=== PATIENT | male | born 1970 ===

== ENCOUNTER 2016-11-30 19:51 | Inpatient (IN) | payer OTHER ==
[2016-11-30 19:53] VITALS: BMI 31.1
--- NOTE | 2016-11-30 20:12 | ED PDOC ---
Arrival/HPI - General Chief Complaint: Chest Pain Time Seen by Provider: 11/30/16 20:00 Historian: Patient, EMS - History of Present Illness Narrative History of Present Illness (Text): 11/30/16 20:05 A 46 year old male, whose past medical history includes Diabetes (on Metformin) and HCL, is BIBA for the evaluation of intermittent chest pain over the last 4 days. This current episode of chest pain started 30 min before EMS arrived to the patient's home. EMS reports that patient received Aspirin in the field and Nitro was withheld since the patient's pressure was 100 systolic. EMS states patient had rhythm strips that were highly suggestive of an acute CT inferiorly. Upon arrival, patient states that pain was no longer present in the Emergency room. Patient describes the pain as a sensation of tightness and rates it as a 10/10 in severity. Patient reports that he saw his PMD earlier today. Patient denies shortness of breath, headaches, dizziness, nausea, vomiting, diarrhea, or any other complaints. Time/Duration: 1/2 hour Symptom Onset: Sudden Symptom Course: Intermittent Quality: Tightness Severity Level: 10, Severe Activities at Onset: Light Context: Home Past Medical History - Provider Review Nursing Documentation Reviewed: Yes - Pulmonary Hx Respiratory Disorders: No - Neurological Hx Neurological Disorder: No - HEENT Hx HEENT Disorder: No - Renal Hx Renal Disorder: No - Endocrine/Metabolic Hx Diabetes Mellitus Type 2: Yes - Hematological/Oncological Hx Blood Disorders: No - Integumentary Hx Dermatological Disorder: No - Musculoskeletal/Rheumatological Hx Musculoskeletal Disorders: No - Gastrointestinal Hx Gastrointestinal Disorders: No - Genitourinary/Gynecological Hx Genitourinary Disorders: No - Psychiatric Hx Psychophysiologic Disorder: No Hx Substance Use: No - Anesthesia Hx Anesthesia: No Family/Social History - Physician Review Nursing Documentation Reviewed: Yes Family/Social History: No Known Family HX Smoking Status: Former Smoker Hx Alcohol Use: No Hx Substance Use: No Allergies/Home Meds Allergies/Adverse Reactions: Allergies No Known Allergies Allergy (Verified 11/30/16 19:54) Home Medications: Home Meds Medication Instructions Recorded Confirmed Simvastatin [Zocor] 40 mg PO DAILY 11/30/16 11/30/16 metFORMIN [glucOPHAGE] 500 mg PO BID 11/30/16 11/30/16 Review of Systems - Physician Review All systems were reviewed & negative as marked: Yes - Review of Systems Constitutional: absent: Fevers Respiratory: absent: SOB Cardiovascular: Chest Pain Gastrointestinal: absent: Diarrhea, Nausea, Vomiting Neurological: absent: Headache, Dizziness Physical Exam Vital Signs Reviewed: Yes Vital Signs Temp Pulse Resp BP Pulse Ox 11/30/16 22:28 74 16 132/80 98 11/30/16 21:00 69 16 120/74 100 11/30/16 20:00 97.7 F 60 18 119/89 99 Temperature: Afebrile Blood Pressure: Normal Pulse: Regular Respiratory Rate: Normal Appearance: Positive for: Well-Appearing, Non-Toxic, Comfortable Pain Distress: None Mental Status: Positive for: Alert and Oriented X 3 - Systems Exam Head: Present: Atraumatic, Normocephalic Pupils: Present: PERRL Extroacular Muscles: Present: EOMI Conjunctiva: Present: Normal Mouth: Present: Moist Mucous Membranes Neck: Present: Normal Range of Motion, Other (Supple). No: MIDLINE TENDERNESS, Paraspinal Tenderness Respiratory/Chest: Present: Clear to Auscultation, Good Air Exchange. No: Respiratory Distress, Accessory Muscle Use Cardiovascular: Present: Regular Rate and Rhythm, Normal S1, S2. No: Murmurs Abdomen: Present: Normal Bowel Sounds. No: Tenderness, Distention, Peritoneal Signs, Rebound, Guarding Back: Present: Normal Inspection. No: CVA Tenderness, Midline Tenderness, Paraspinal Tenderness Upper Extremity: Present: Normal Inspection, Normal ROM, NORMAL PULSES, Neurovascularly Intact. No: Cyanosis, Edema, Tenderness, Swelling, Erythema Lower Extremity: Present: Normal Inspection, NORMAL PULSES, Normal ROM, Neurovascularly Intact. No: Edema, CALF TENDERNESS, Tenderness, Swelling, Erythema Neurological: Present: GCS=15, CN II-XII Intact, Speech Normal, Motor Func Grossly Intact, Normal Sensory Function Skin: Present: Warm, Dry, Normal Color. No: Rashes Psychiatric: Present: Alert, Oriented x 3, Normal Insight, Normal Concentration Medical Decision Making ED Course and Treatment: 11/30/16 20:15 Impression: A 46 year old male with chest pain. No acute findings on examination. Differential Diagnosis included but are not limited to: CT vs. Nonspecific Chest pain Plan: -- EKG -- Chest X-ray -- Labs -- Reassess and disposition Progress Notes: 11/30/16 20:20 EKG: Ordered, reviewed, and independently interpreted the EKG. Rate : 72 BPM Rhythm : Sinus Arrhythmia Interpretation : Septal infarct and nonspecific ST/T changes. Comparison : No previous EKG for comparison. 11/30/16 20:55 EKG2: Ordered, reviewed, and independently interpreted the EKG. Rate : 55 BPM Rhythm : Sinus Bradycardia Interpretation : Nonspecific ST/T changes. Comparison : No previous EKG for comparison. 11/30/16 21:[address] Mcleod, who is aware and agrees with plan. Accepts pt into her service. 11/30/16 21:[address] Mcgrath, who is aware and agrees with plan. Recommends Heparin at this time and monitoring on Telemetry since pt has had serial EKGs with no acute injury. Pt will be admitted to Telemetry for chest pain under Dr. Mcleod's service. 11/30/16 22:31 Chest X-ray shows no active disease. - Critical Care Critical Care Minutes: 30 minutes - Lab Interpretations Lab Results: 11/30/16 20:00 11/30/16 20:00 Lab Results 11/30/16 20:00: WBC 14.5 H, RBC 5.17, Hgb 14.8, Hct 41.8 L, MCV 80.9, MCH 28.6, MCHC 35.4, RDW 12.5, Plt Count 272, MPV 11.6 H 11/30/16 20:00: Sodium 140, Potassium 4.5, Chloride 101, Carbon Dioxide 23, Anion Gap 21 H, BUN 16, Creatinine 1.0, Est GFR ( Amer) > 60, Est GFR ( Non-Af Amer) > 60, Random Glucose 182 H, Calcium 9.2, Total Bilirubin 0.9, AST 27, ALT 48, Alkaline Phosphatase 85, Lactate Dehydrogenase 349, Total Creatine Kinase 57, Troponin I < 0.01, Total Protein 6.2, Albumin 3.9, Globulin 2.4, Albumin/Globulin Ratio 1.6 11/30/16 20:00: PT 10.4, INR 0.96, APTT 23.3 L 11/30/16 19:56: POC Glucose (mg/dL) 203 H I have reviewed the lab results: Yes - RAD Interpretation Radiology Orders: 11/30/16 20:01 CHEST PORTABLE [RAD] Stat Cafe Site Attendant: ED Physician - EKG Interpretation Interpreted by ED Physician: Yes Type: 12 lead EKG - Medication Orders Current Medication Orders: Heparin Sodium/Sodium Chloride (Heparin 99228 Units/250ml 1/2 Normal Saline) 25 ,000 units in 250 mls @ 10 mls/hr IV .Q24H PRN; Protocol; 1,000 UNITS/HR PRN Reason: ADJUST RATE PER MD ORDER Discontinued Medications Heparin Sodium (Porcine) (Heparin) 5,000 units IV ONCE STA PRN Reason: Protocol Stop: 11/30/16 21:58 Nitroglycerin (Nitro-Bid 2% Oint) 1 ea TOP ONCE STA Stop: 11/30/16 20:37 Last Admin: 11/30/16 21:11 Dose: 1 ea - Scribe Statement The provider has reviewed the documentation as recorded by the Kathy Cook Provider Scribe Attestation: All medical record entries made by the Scribe were at my direction and personally dictated by me. I have reviewed the chart and agree that the record accurately reflects my personal performance of the history, physical exam, medical decision making, and the department course for this patient. I have also personally directed, reviewed, and agree with the discharge instructions and disposition. Disposition/Present on Arrival - Present on Arrival Any Indicators Present on Arrival: No History of DVT/PE: No History of Uncontrolled Diabetes: No Urinary Catheter: No History of Decub. Ulcer: No History Surgical Site Infection Following: None - Disposition Have Diagnosis and Disposition been Completed?: Yes Diagnosis: Chest pain Disposition: HOSPITALIZED Disposition Time: 22:04 Patient Plan: Admission Patient Problems: Current Active Problems Problem Status Onset Chest pain Acute Condition: STABLE Discharge Instructions (ExitCare): Chest Pain (ED) Referrals: Tracy Foley MD [Primary Care Provider] - Follow up with primary
[2016-11-30] MEDS ORDERED: Nitroglycerin 2% Ointment Foilpak UD TOP STA (20:36)
[2016-11-30 20:39] LABS: HEMATOCRIT 41.8 % (42.0-52.0); MEAN CELL VOLUME 80.9 fL (80.0-105.0); MEAN CORPUSCULAR HEMOGLOBIN 28.6 pg (25.0-35.0); MEAN CORPUSCULAR HGB CONC 35.4 g/dl (31.0-37.0); MEAN PLATELET VOLUME 11.6 fl (7.0-11.0); RED CELL DISTRIBUTION WIDTH 12.5 % (11.5-14.5); WHITE BLOOD COUNT 14.5 10^3/ul (4.5-11.0)
[2016-11-30 20:46] LABS: INR 0.96 (0.93-1.08); PARTIAL THROMBOPLASTIN TIME 23.3 Seconds (23.7-30.8)
[2016-11-30 20:48] LABS: ALB/GLOB RATIO 1.6 (1.1-1.8); ALKALINE PHOSPHATASE 85 U/L (38-133); ALT/SGPT 48 U/L (7-56); AST/SGOT 27 U/L (15-59); BILIRUBIN,TOTAL 0.9 mg/dL (0.2-1.3); CALCIUM 9.2 mg/dL (8.4-10.5); CARBON DIOXIDE 23 mmol/L (21-33); CHLORIDE 101 mmol/L (98-107); GFR AFRICAN-AMERICAN > 60; GLUCOSE,RANDOM 182 mg/dL (70-110); POTASSIUM 4.5 mmol/L (3.6-5.0); SODIUM 140 mmol/L (132-148); TOTAL PROTEIN 6.2 g/dL (5.8-8.3)
[2016-11-30 21:04] LABS: BLOOD UREA NITROGEN 16 mg/dL (7-21)
[2016-11-30 21:09] LABS: TROPONIN I < 0.01 ng/mL
[2016-11-30] MEDS ORDERED: Heparin25000 units/250ml 1/2NS 25,000 UNITS/250 ML BAG IV PRN (21:58)
[2016-12-01] MEDS ORDERED: Heparin25000 units/250ml 1/2NS 25,000 UNITS/250 ML BAG IV SCH (05:30)
[2016-12-01 05:41] LABS: TROPONIN I 4.98 ng/mL
--- NOTE | 2016-12-01 06:11 | CP.PCM.PN ---
Subjective - Date & Time of Evaluation Date of Evaluation: 12/01/16 Time of Evaluation: 05:57 - Subjective Subjective: called by nurse pt has elevated troponine 4.98,pt denies complaints is lying comfortably . pt is on heparin .pt had receieved asprin but no plavix ,uds is positive for cocain. Objective - Vital Signs/Intake and Output Vital Signs (last 24 hours): Temp Pulse Resp BP Pulse Ox 98.3 F 67 18 118/66 98 12/01/16 05:53 12/01/16 05:53 12/01/16 05:53 12/01/16 05:53 12/01/16 05:53 - Medications Medications: Current Medications Heparin Sodium/Sodium Chloride (Heparin 51248 Units/250ml 1/2 Normal Saline) 25 ,000 units in 250 mls @ 14.4 mls/hr IV .[id number] PRN; Protocol PRN Reason: ADJUST PER PROTOCOL - Labs Labs: PT 10.4 Seconds (9.9-11.8) 11/30/16 20:00 INR 0.96 (0.93-1.08) 11/30/16 20:00 APTT 34.1 Seconds (23.7-30.8) H 12/01/16 04:15 - Constitutional Appears: No Acute Distress - Head Exam Head Exam: NORMOCEPHALIC - Eye Exam Eye Exam: Normal appearance Pupil Exam: PERRL - ENT Exam ENT Exam: Mucous Membranes Moist - Neck Exam Neck Exam: Full ROM - Respiratory Exam Respiratory Exam: Clear to Ausculation Bilateral - Cardiovascular Exam Cardiovascular Exam: RRR, +S1, +S2 - GI/Abdominal Exam GI & Abdominal Exam: Soft, Normal Bowel Sounds - Rectal Exam Rectal Exam: Deferred - Extremities Exam Extremities Exam: Full ROM - Neurological Exam Neurological Exam: Alert, Awake, CN II-XII Intact, Oriented x3 - Psychiatric Exam Psychiatric exam: Normal Affect - Skin Skin Exam: Dry, Normal Color Assessment and Plan - Assessment and Plan (Free Text) Assessment: NSTEMI./COCAIN. Plan: PT pt is on heparine will add plavix 300mg x1.called dr maldonado.
[2016-12-01] MEDS: Nitroglycerin 2% Ointment Foilpak UD TOP SCH ×3 (10:45→21:50)
[2016-12-01 11:06] LABS: ADD MANUAL DIFF? NO
[2016-12-01 11:09] LABS: BASO # 0.01 K/mm3 (0.0-2.0); BASO % 0.1 % (0.0-3.0); EOS # 0.1 (0.0-0.7); EOS % 0.9 % (1.5-5.0); GRAN # 5.85 (1.4-6.5); GRAN % 63.4 % (50.0-68.0); HEMATOCRIT 41.2 % (42.0-52.0); LYMPH # 2.7 (1.2-3.4); LYMPH % 28.8 % (22.0-35.0); MEAN CELL VOLUME 83.1 fL (80.0-105.0); MEAN PLATELET VOLUME 12.5 fl (7.0-11.0); MONO # 0.6 (0.1-0.6); MONO % 6.8 % (1.0-6.0); PLATELET COUNT 204 10^3/uL (120.0-450.0); RED CELL DISTRIBUTION WIDTH 12.7 % (11.5-14.5); WHITE BLOOD COUNT 9.2 10^3/ul (4.5-11.0)
[2016-12-01] MEDS ORDERED: Insulin Reg-LOW-Coverage SC SCH (11:30)
[2016-12-01] MEDS: Insulin Reg-LOW-Coverage SC SCH ×3 (11:30→21:24)
--- NOTE | 2016-12-01 11:41 | RAD ---
HISTORY: chest pain COMPARISON: The No prior. FINDINGS: LUNGS: Poor inspiration with low lung volumes, mild crowded bronchovascular markings and mild bibasilar atelectasis PLEURA: No significant pleural effusion identified, no pneumothorax apparent. CARDIOVASCULAR: Normal. OSSEOUS STRUCTURES: No significant abnormalities. VISUALIZED UPPER ABDOMEN: Normal. OTHER FINDINGS: None. IMPRESSION: Poor inspiration with low lung volumes, mild crowded bronchovascular markings and mild bibasilar atelectasis
[2016-12-01 12:30] LABS: ALB/GLOB RATIO 1.5 (1.1-1.8); ALKALINE PHOSPHATASE 86 U/L (38-133); ALT/SGPT 43 U/L (7-56); AST/SGOT 47 U/L (15-59); BILIRUBIN,TOTAL 1.1 mg/dL (0.2-1.3); BLOOD UREA NITROGEN 12 mg/dL (7-21); CALCIUM 9.1 mg/dL (8.4-10.5); CARBON DIOXIDE 23 mmol/L (21-33); CHLORIDE 104 mmol/L (98-107); CHOLESTEROL 152 mg/dL (130-200); GFR AFRICAN-AMERICAN > 60; GLUCOSE,RANDOM 142 mg/dL (70-110); SODIUM 137 mmol/L (132-148); TOTAL PROTEIN 6.4 g/dL (5.8-8.3)
[2016-12-01 13:22] LABS: TROPONIN I 4.22 ng/mL
--- NOTE | 2016-12-01 13:29 | CON ---
DATE: 12/01/2016 REASON FOR CONSULTATION: Cardiac evaluation, chest pain, possible cocaine-induced vasospasm, ST elev ation. 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 The school lunch monitor where the patient was picked up with EMT/ambulance with ST eleva tion in inferior lead II, III, aVF. When the patient got to the Emergency Room after receiving aspir in and nitroglycerin in the field, rhythm strips from the field shows ST elevation, but while the pat ient had EKG here, complete resolution of ST segment noted with resolution of the chest pain. Repeat 3 EKG were done by Dr. Escoto after a while, but all these show no ST elevation and the patient completely resolved the chest pain. Troponin was negative. I was called for discussion and manageme nt. I told them that probably will start heparin and send the tox screen to rule out any cocaine-ind uced vasospasm as well as start heparin and nitrate and hold off the beta dottie for now. Since the n, the patient is chest pain free. This morning, the patient denies any chest pain, but the repeat t roponin at 2:00 a.m. came out 4.2, first troponin being negative. Repeat EKG this morning done again , there was no ST segment elevation noted or ST depression noted. Completely normal EKG and the mark ent is completely chest pain free as well. PAST MEDICAL HISTORY: Significant for hyperlipidemia as per patient and questionable history of diab etes, usually takes 2 aspirin every day and cholesterol pills, name unknown. 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 Denies any smoking. Denies any history of alcohol abuse. Den ies substance abuse. With further interrogation as the tox screen is positive, the patient said that he took only 1 time cocaine last Saturday. FAMILY HISTORY: Significant for coronary artery disease. Father at the age of 50. REVIEW OF SYSTEMS: As per HPI. 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 Denies any chest pain, shortness o f breath, any palpitation. PHYSICAL EXAMINATION: VITAL SIGNS: Temperature afebrile, heart rate 67, blood pressure 118/66. HEENT: PERRLA. Extraocular muscles intact. NECK: Supple. No carotid bruits. No thyromegaly. CHEST: Clear to auscultation. HEART: S1, S2 regular. ABDOMEN: Soft. EXTREMITIES: Clubbing and cyanosis negative. Height of the patient is 5 feet 7 inches. Weight of t he patient 183. Body mass index 28.7 kg/m2. EKG shows normal sinus. No acute ST-T changes noted, but when compared from the EKG that was in tele metry strip when the patient was picked up in the EMT shows significant 3-[address] elevation in inferi or leads II, III, aVF with reciprocal ST depression in anterior lead suggestive of acute AR. BLOOD WORKUP: WBC 14.5, hemoglobin 14.8, hematocrit 41.8, platelet count 272. Chemistry shows sodiu m 140, potassium 4.5, chloride 101, carbon dioxide 23, anion gap of 21, BUN 16, creatinine 1.0. Firs t troponin being 0.01, second troponin 4.98. IMPRESSION: Possible cocaine-induced vasospasm lead to the acute myocardial infarction with complete resolution of ST segment, complete resolution of the chest pain. Not a candidate to go for emergent cardiac catheterization. History of substance abuse, history of hyperlipidemia, history of diabetes . RECOMMENDATION: We will get lipid profile, TSH, hemoglobin A1c, follow up serial CPK, troponin. Con tinue heparin, continue nitrate. Avoid beta dottie for unopposed effect of alpha dottie from the c ocaine. Will get aspirin, Plavix and possible cardiac catheterization on Saturday. We will get echo t o assess LV function. We will follow with you. Thank you, Dr. Mcleod, for providing the opportunity in taking care of the patient. Further recommen dation during the hospital course. Antonio Mcgrath MD cc: [id number] TT: 12/01/2016 13:28:24 Confirmation # [id number] Dictation # [id number] tn
--- NOTE | 2016-12-01 13:29 | CARD ---
APPROVED REPORT EKG Measurement Heart [id number] [place] [id number] <Conclusion> Normal sinus rhythm Normal ECG
--- NOTE | 2016-12-01 13:32 | CARD ---
APPROVED REPORT EKG Measurement Heart [id number] [place] [id number] [id number] <Conclusion> Normal sinus rhythm Normal ECG
--- NOTE | 2016-12-01 13:35 | CARD ---
APPROVED REPORT EKG Measurement Heart [id number] [place] 146P64 [id number] <Conclusion> Sinus rhythm with marked sinus arrhythmia Possible Left atrial enlargement Non Sp. IVCD Abnormal ECG
[2016-12-01] MEDS: Heparin25000 units/250ml 1/2NS 25,000 UNITS/250 ML BAG IV PRN ×2 (17:50→19:26)
--- NOTE | 2016-12-01 19:29 | HP ---
CHIEF COMPLAINT: Chest pain, shortness of breath. HISTORY OF PRESENT ILLNESS: The patient is a 46-year-old male with a past medical history of diabetes on metformin, hypertension, came for evaluation of intermittent chest pain over the last 4 days. The current episode of chest pain started 30 minutes before EMS arrived to the patient's home. EMS reported that the patient received aspirin in the field and nitro withheld since the patient's blood pressure was 100 systolic. EMS stated that the patient had rhythm strips that were highly suggestive of an acute myocardial infarction inferiorly. Upon arrival, the patient stated that the pain was no longer present in the Emergency Room. The patient describes this pain as a sensation of tightness and is like 10/10 in severity. The patient reports that he saw his primary care physician earlier that day. The patient denies shortness of breath, headache or dizziness, nausea, vomiting, diarrhea or any other complaints. No fever, no chills. PAST MEDICAL HISTORY: Diabetes mellitus type 2, hypertension. FAMILY HISTORY: Father and mother noncontributory. HABITS: Former smoker. No drugs, no ethanol. ALLERGIES: The patient is not allergic to any medications. HOME MEDICATIONS: Zocor, metformin. REVIEW OF SYSTEMS: The patient was seen and examined on the bedside. was sitting on the bedside also. At the moment, no chest pain, no nausea, vomiting , or diarrhea. No fever, no chills. No headache, no dizziness. Feeling relaxed. No dyspnea. No diarrhea, no nausea or vomiting. PHYSICAL EXAMINATION: VITAL SIGNS: Temperature 97.7, pulse 60, respiratory rate 16, blood pressure 190/89, pulse oximetry 99. HEAD: Normocephalic, atraumatic. EYES: PERRLA. Extraocular muscles are intact. Conjunctivae are clear. Nose patent. NECK: Supple. No carotid bruit. No JVD or thyromegaly. CHEST: Bilaterally symmetrical. HEART: S1, S2 positive. LUNGS: Clear to auscultation. ABDOMEN: Soft. Bowel sounds present. No organomegaly. EXTREMITIES: No edema, no cyanosis. NEUROLOGIC: The patient is awake, alert, moving all 4 extremities. No focal deficit. LABORATORY DATA: White blood cells 14.5, hemoglobin 14.8, hematocrit 41.8, platelets 272. Sodium 140, potassium 4.5, BUN 15, creatinine 1.0, and glucose 182. ASSESSMENT AND PLAN: The patient is a 46-year-old male with leukocytosis, hyperglycemia, came with chest pain, history of diabetes mellitus, hypertension , hypercholesterolemia. We admitted the patient. The patient's primary care , does not come in this hospital. The patient is admitted under my service. Seen by Dr. Mcgrath, tight rope walker. Seen by Dr. graham physician. According to Dr. Mcgrath, the patient has possibly cocaine induced with leading to acute myocardial infarction with complete resolution of ST segment, complete resolution of the chest pain. Not a candidate to go to emergent cardiac catheterization, history of substance abuse, history of hypercholesterolemia. We will do TSH, hemoglobin A1c, follow up with serial CPK, troponin and continue heparin. As per tight rope walker, avoid beta dottie for unopposed effect of alpha blockers from the cocaine. Length of time discussion done with the patient and patient's . They speaks [place]ian. The patient's nurse, Margie, speaks [place]ian. Margie of the nursing staff helped me for translation. Started on Plavix by Dr. Mcgrath for possible cardiac catheterization on Saturday. Asia Mcleod MD cc: [id number] TT: 12/01/2016 19:28:41 noman CROOK
[2016-12-02] MEDS: Nitroglycerin 2% Ointment Foilpak UD TOP SCH ×4 (05:15→21:44)
[2016-12-02] MEDS: Insulin Reg-LOW-Coverage SC SCH ×4 (08:08→21:31)
[2016-12-02 08:37] LABS: ADD MANUAL DIFF? NO
[2016-12-02 08:41] LABS: EOS # 0.1 (0.0-0.7); EOS % 1.8 % (1.5-5.0); GRAN # 3.23 (1.4-6.5); GRAN % 49.8 % (50.0-68.0); HEMATOCRIT 41.5 % (42.0-52.0); LYMPH # 2.7 (1.2-3.4); LYMPH % 41.5 % (22.0-35.0); MEAN CELL VOLUME 80.9 fL (80.0-105.0); MEAN CORPUSCULAR HEMOGLOBIN 28.3 pg (25.0-35.0); MEAN CORPUSCULAR HGB CONC 34.9 g/dl (31.0-37.0); MEAN PLATELET VOLUME 11.6 fl (7.0-11.0); MONO # 0.5 (0.1-0.6); MONO % 6.9 % (1.0-6.0); PLATELET COUNT 165 10^3/uL (120.0-450.0); RED CELL DISTRIBUTION WIDTH 12.5 % (11.5-14.5); WHITE BLOOD COUNT 6.5 10^3/ul (4.5-11.0)
[2016-12-02 09:10] LABS: ALB/GLOB RATIO 1.4 (1.1-1.8); ALKALINE PHOSPHATASE 98 U/L (38-133); ALT/SGPT 41 U/L (7-56); AST/SGOT 26 U/L (15-59); BLOOD UREA NITROGEN 11 mg/dL (7-21); CALCIUM 9.4 mg/dL (8.4-10.5); CARBON DIOXIDE 24 mmol/L (21-33); CHLORIDE 102 mmol/L (98-107); GFR AFRICAN-AMERICAN > 60; GLUCOSE,RANDOM 144 mg/dL (70-110); MAGNESIUM 1.9 mg/dL (1.7-2.2); PHOSPHOROUS 4.1 mg/dL (2.5-4.5); POTASSIUM 4.1 mmol/L (3.6-5.0); SODIUM 137 mmol/L (132-148); TOTAL PROTEIN 6.6 g/dL (5.8-8.3)
[2016-12-02 09:25] LABS: TROPONIN I 1.52 ng/mL
[2016-12-02] MEDS: Heparin25000 units/250ml 1/2NS 25,000 UNITS/250 ML BAG IV PRN (10:04)
--- NOTE | 2016-12-02 15:43 | PN ---
DATE: 12/02/2016 The patient is a 46-year-old male. The patient was seen and examined on the bedside, looks comfortable. No chest pain, no shortness of breath, no fever, no chills. No nausea, vomiting, diarrhea. No hematuria, no hematochezia. No swelling of the legs. No chest pain, no palpitation. I interviewed the patient 's with the nurse aide who speaks [place]orese very fluently. Things were explained to the patient. All questions answered. PHYSICAL EXAMINATION: VITAL SIGNS: Temperature 98.3, pulse 97, blood pressure 120/86, respiratory rate 18. HEENT: Head normocephalic, atraumatic. Eyes, PERRLA. Extraocular muscles intact. Conjunctivae clear. Nose patent. Mucous membranes moist. NECK: Supple. No carotid bruit, no JVD, no thyromegaly. CHEST: Bilaterally symmetrical. HEART: S1, S2 positive. LUNGS: Clear to auscultation. ABDOMEN: Soft. Bowel sounds positive. No organomegaly. EXTREMITIES: No edema, no cyanosis. NEUROLOGIC: The patient is awake, alert. Moving all 4 extremities. No focal deficits. MEDICATIONS: Aspirin, Glucophage, insulin, nitro, Pepcid, Plavix, Zocor. LABORATORIES: White blood cells 6.5, hemoglobin 14.5, hematocrit 41.5, platelets 165. Sodium 137, potassium 4.1, BUN 11, creatinine 0.7, glucose 144. Lactate dehydrogenase 316. Troponin 1.52. ASSESSMENT AND PLAN: The patient is a 46-year-old male with history of cocaine abuse, has uncontrolled diabetes mellitus, troponin is positive, but trending down, cocaine positive in drug screening. Came with chest pain, history of leukocytosis, improved, history of hypercholesterolemia, possibly cocaine- induced vasospasm due to acute myocardial infarction with complete resolution of ST segment on EKG. Not a candidate for go to emergent cardiac catheterization as per cardiology. History of substance abuse, history of hypercholesterolemia. Maybe needs cardiac catheterization tomorrow. Reviewed Dr. Mcgrath's notes. We will continue aspirin, metformin for diabetes. Put patient on sliding scale, low algorithm, rhythm regular. Nitroglycerin, Pepcid for gastrointestinal prophylaxis, Tylenol for chest pain. Repeat labs. Will follow up. Asia Mcleod MD cc: [id number] TT: 12/02/2016 15:43:04 Confirmation # [id number] Dictation # [id number] en MTDD
[2016-12-03] MEDS: Heparin25000 units/250ml 1/2NS 25,000 UNITS/250 ML BAG IV PRN (00:53)
[2016-12-03] MEDS: Nitroglycerin 2% Ointment Foilpak UD TOP SCH (05:09)
[2016-12-03 05:32] VITALS: O2SAT 97
[2016-12-03] MEDS: Insulin Reg-LOW-Coverage SC SCH ×3 (07:48→22:36)
--- NOTE | 2016-12-03 08:06 | PN ---
DATE: 12/02/2016 REASON FOR CONSULTATION AND FOLLOWUP: Cardiac evaluation, chest pain, possible cocaine-induced vasos pasm, ST elevation, complete resolution ____ ST-segment myocardial infarction. 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 Later on, patient came to the Emergency Room, found to be ____ complete ST segment with resolution of the chest pain. Later on, troponin positive. The patient is completely c hest pain free. Denies any chest pain, shortness of breath, any palpitation, is scheduled for cardia c catheterization tomorrow. PHYSICAL EXAMINATION: VITAL SIGNS: Temperature afebrile, heart rate 73, blood pressure 119/78. HEENT: PERRLA. Extraocular muscles intact. NECK: Supple. No carotid bruits. No thyromegaly. CHEST: Clear to auscultation. HEART: S1, S2 regular. ABDOMEN: Soft. EXTREMITIES: Clubbing, cyanosis negative. BLOOD WORKUP: WBC 6.5, hemoglobin 14.5, hematocrit 41.5, platelet count 165. Chemistry shows sodium ____, potassium 4.____, chloride 102, carbon dioxide 24, anion gap of 15, BUN 11, creatinine 0.7. T roponin trending down to 1.452, maximum being 4.98 yesterday ____. IMPRESSION: Possible cocaine induced vasospasm leading to ST segment myocardial infarction with comp lete resolution by arriving to ER. Now, patient is ruling in for myocardial infarction, possible non -ST-segment myocardial infarction, prediabetic, hyperlipidemia. RECOMMENDATION: Continue aspirin, Plavix, nitrate and antilipid agent. Cardiac catheterization [place]. Beta dottie was not given because of the ____ of cocaine. The patient tox screen came positi ve for cocaine. Risks, benefits, alternatives discussed with the patient. The patient is scheduled for cardiac catheterization tomorrow. We will keep n.p.o. after 12:00 midnight for cardiac catheteri zation tomorrow. Thank you, Dr. Montejo, for providing us the opportunity in taking care of the patient. Antonio Mcgrath MD cc: [id number] TT: 12/02/2016 10:47:17 Confirmation # [id number] Dictation # [id number] en
[2016-12-03] MEDS ORDERED: Lidocaine 2% Inj (20ml) ONE (09:24)
[2016-12-03] MEDS ORDERED: Nitroglycerin 50mg in D5W 50 MG/250 ML BOTTLE IV ONE (09:24)
[2016-12-03] MEDS ORDERED: Iohexol 350mgl/ml 50 ML ONE (09:24)
[2016-12-03] MEDS ORDERED: Midazolam 2 MG/2 ML VIAL ONE ×2 (09:54→10:14)
[2016-12-03] MEDS ORDERED: Eptifibatide 0.75 mg/ml 75 MG/100 ML BOTTLE IV ONE (10:23)
[2016-12-03] MEDS ORDERED: Eptifibatide 20 mg/10mL Inj IVP ONE (10:23)
[2016-12-03] MEDS ORDERED: Phenylephrine 10 mg/ml Inj ONE (10:24)
[2016-12-03] MEDS ORDERED: Iohexol 350 MG/100 ML VIAL ONE ×2 (10:39→10:52)
[2016-12-03] MEDS ORDERED: Sodium Chloride 0.9% 1,000 ML IV SCH (11:30)
[2016-12-03] MEDS ORDERED: Eptifibatide 0.75 mg/ml 100 ML IV SCH (11:43)
--- NOTE | 2016-12-03 12:59 | PN ---
DATE: 12/03/2016 REASON FOR CONSULTATION AND FOLLOWUP: Cardiac evaluation, chest pain, positive cocaine-induced vaso spasm, ST elevation, subsequent resolution of ST segment but troponin positive. Underwent cardiac ca theterization today. 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 ST elevation when the patient was picked up on the electronic device monitor in the ambulance shows ST elevation ____. When th e patient got to the ER, complete resolution of the ST segment and no chest pain, but later on tropon in came back positive. The patient underwent a cardiac catheterization that revealed RCA high grade III stenosis 90% and distal RPDA has 80% stenosis as well as LAD ____ stenosis. Subsequently, philipp craven underwent 3 drug-eluting stents in RCA. The procedure went well, but noted blood clot in RCA possi elina secondary to hypercoagulable secondary to cocaine, so plan is to continue Integrilin for the next 18 hours and, if remains stable, the patient will be discharged tomorrow and readmitted for PTCA of LAD on 01/03/2017 at 7:30. Discussed with Dr. Mcleod. In the interim, will continue aspirin, contin ue Plavix, continue with statin, continue low dose of CASPER inhibitor. Will avoid beta dottie to unop posed effects of alpha. Emphasis made to the patient for complete cessation of cocaine and substance abuse, and compliance with medication, aspirin and Plavix through the educational sign language interpreter of ____ here in th e laborer shaft sinking. Answered all questions. The patient and patient's mentioned that they understood e verything. Thank you, Dr. Mcleod, for providing the opportunity in taking care of this patient. Antonio Mcgrath MD cc:Asia Mcleod MD [id number] TT: 12/03/2016 12:49:09 Confirmation # [id number] Dictation # [id number] mn
--- NOTE | 2016-12-03 15:06 | CARD ---
APPROVED REPORT EXAM: Two-dimensional and M-mode echocardiogram with Doppler and color Doppler. 2D DIMENSIONS Left Atrium (2D)3.0 (1.6-4.0cm)IVSd1.0 (0.7-1.1cm) LVDd4.2 (3.9-5.9cm)PWd0.9 (0.7-1.1cm) LVDs2.6 (2.5-4.0cm)FS (%) 38.4 % LVEF (%)69.1 (>50%) M-Mode DIMENSIONS Left Atrium (MM)3.10 (2.5-4.0cm)Aortic Root3.60 (2.2-3.7cm) Aortic Cusp Exc.2.20 (1.5-2.0cm) Aortic Valve AoV Peak Eymwlndq548.0cm/sAoV VTI23.6cmAO Peak GR.7mmHg LVOT Peak Ypltuldh37.7cm/sLVOT VTI20.30cmAO Mean GR.3mmHg Mitral Valve MV E Daufqyjf43.8cm/sMV A Rgktirbf09.4cm/sE/A ratio1.8 TDI Lateral E' Peak V13.90cm/sMedial E' Peak V11.60cm/sE/Lateral E'6.4 E/Medial E'7.7 Tricuspid Valve TR Peak Bqjvzkdh034an/sTR Peak Gr.23mmHg LEFT VENTRICLE The left ventricle is normal size. There is normal left ventricular wall thickness. The left ventricular function is normal.EF-55-60% There is normal LV segmental wall motion. The left ventricular diastolic function is normal. No left ventricle thrombus noted on this study. There is no ventricular septal defect visualized. There is no left ventricular aneurysm. There is no mass noted in the left ventricle. RIGHT VENTRICLE The right ventricle is normal size. There is normal right ventricular wall thickness. The right ventricular systolic function is normal. ATRIA The left atrium size is normal. The right atrium size is normal. The interatrial septum is intact with no evidence for an atrial septal defect. AORTIC VALVE The aortic valve is normal in structure. No aortic regurgitation is present. There is no aortic valvular stenosis. There is no aortic valvular vegetation. MITRAL VALVE The mitral valve is thickened but opens well. Mitral regurgitation is trace. There is no mitral valve stenosis. There is no evidence of mitral valve prolapse. TRICUSPID VALVE The tricuspid valve leaflets are thickened , but open well. There is trace to mild tricuspid regurgitation.RVSP-23 mmof hg. There is no tricuspid valve stenosis. PULMONIC VALVE The pulmonic valve is borderline thickened. There is trace pulmonic valvular regurgitation. There is no pulmonic valvular stenosis. GREAT VESSELS The aortic root is normal in size. The ascending aorta is normal in size. The pulmonary artery is normal. The IVC is normal in size and collapses >50% with inspiration. PERICARDIAL EFFUSION There is no pleural effusion. There is a trace circumferential pericardial effusion. <Conclusion> Normal chamber Size. EF-55-60%. Mitral regurgitation is trace. There is trace to mild tricuspid regurgitation.RVSP-23 mmof hg. There is a trace circumferential pericardial effusion.
--- NOTE | 2016-12-03 15:30 | CARD ---
APPROVED REPORT EKG Measurement Heart [id number] NM 150P35 [id number] <Conclusion> Normal sinus rhythm Inferior infarct, age undetermined Abnormal ECG
[2016-12-03] MEDS ORDERED: Bacitracin 500 Units/gm Oint Foilpak UD ONE (15:53)
[2016-12-03 16:43] LABS: ADD MANUAL DIFF? NO
[2016-12-03 16:46] LABS: BASO # 0.01 K/mm3 (0.0-2.0); BASO % 0.1 % (0.0-3.0); EOS # 0.1 (0.0-0.7); EOS % 1.2 % (1.5-5.0); GRAN # 4.62 (1.4-6.5); GRAN % 67.3 % (50.0-68.0); HEMATOCRIT 41.3 % (42.0-52.0); LYMPH # 1.7 (1.2-3.4); LYMPH % 24.7 % (22.0-35.0); MEAN CELL VOLUME 79.9 fL (80.0-105.0); MEAN CORPUSCULAR HEMOGLOBIN 28.4 pg (25.0-35.0); MEAN CORPUSCULAR HGB CONC 35.6 g/dl (31.0-37.0); MEAN PLATELET VOLUME 10.6 fl (7.0-11.0); MONO # 0.5 (0.1-0.6); MONO % 6.7 % (1.0-6.0); PLATELET COUNT 154 10^3/uL (120.0-450.0); RED CELL DISTRIBUTION WIDTH 12.4 % (11.5-14.5); WHITE BLOOD COUNT 6.9 10^3/ul (4.5-11.0)
[2016-12-03 16:55] LABS: BLOOD UREA NITROGEN 12 mg/dL (7-21); CALCIUM 9.4 mg/dL (8.4-10.5); CARBON DIOXIDE 28 mmol/L (21-33); CHLORIDE 99 mmol/L (98-107); GFR AFRICAN-AMERICAN > 60; GLUCOSE,RANDOM 189 mg/dL (70-110); POTASSIUM 3.7 mmol/L (3.6-5.0); SODIUM 136 mmol/L (132-148)
--- NOTE | 2016-12-03 17:05 | CARD ---
APPROVED REPORT Procedure(s) performed: Left Heart Catheterization PTCA with Stenting of Mid RCA with NICKOLAS PTCA with Stenting of Distal RCA with NICKOLAS PTCA with Stenting of Proximal R PDA PTCA with Balloon Angioplasty of Mid to distal R PDA HISTORY The patient is a 46 year-old male with a history of : dyslipidemia , admitted with Chest pain, on survey questionnaire designer in Ambulance showed STEMI in inferior leads with Reciprocal ST depression in anterior leads, but in [place] [facility] pt has complete resolution of chest pain and resolution of ST segment and later on pt ruled in for NSTEMI and Urine Toxicolgy screen turned positive for Coccaine.. INDICATION The indication(s) include : non-STEMI . CASE TECHNIQUE The patient was brought urgently to the Cardiac Catheterization Laboratory in a fasting state and was prepped and draped in a sterile manner. The left wrist was infiltrated with 2% Lidocaine subcutaneous anesthesia. A Radial sheath sheath was inserted into the left radial artery without difficulty. Coronary angiography was performed using coronary diagnostic catheters. The left coronary system was accessed and visualized with a Diagnostic ,JL3.5 5Fr catheter. The right coronary system was accessed and visualized with a Diagnostic , JR3.5, 5FR catheter. The left ventricle was accessed and visualized with a pig tail catheter. Left ventricular/Aortic Valve gradient assessed on pullback. Left ventriculogram was performed in DIXON projection. Closure device was deployed with a Fr TR Band without any complications. The patient tolerated the procedure well and there were no complications associated with the procedure. Vessel Analysis The patient's coronary anatomy is right dominant. The left main coronary artery is a medium size vessel without significant stenosis. The left main bifurcates to the left anterior descending and circumflex. The left anterior descending artery is a medium size vessel with diffuse calcification noted throughout this vessel and with significant stenosis. There is a 80-90% stenosis in the proximal to Mid segment segment. Multiple stenoses The first diagonal branch is a small size vessel with diffuse calcification noted throughout this vessel and without significant stenosis. The second diagonal branch is a small size vessel with diffuse calcification noted throughout this vessel and without significant stenosis. The third diagonal branch is a medium size vessel with diffuse calcification noted throughout this vessel and without significant stenosis. The circumflex artery is a medium size vessel with intimal irregularities and without significant stenosis. The first obtuse marginal branch is a small size vessel without significant stenosis. The second obtuse marginal branch is a large size vessel without significant stenosis. The third obtuse marginal branch is a medium size vessel without significant stenosis. The right coronary artery is a large size vessel with diffuse calcification noted throughout this vessel and with significant stenosis. with possible thrombus in mid and Distal RCA and R PDA There is a 90% stenosis in the mid segment. another 90% stenosis in Distal RCA . The right posterior descending artery is a large size vessel with diffuse calcification noted throughout this vessel and with significant stenosis. There is a 90% stenosis in the ostial segment. another stenosis in Mid to Distal R PDA Left Ventricle The left ventricle is Borderline in size with normal contractility. There was no cardiomyopathy. The left ventricular ejection fraction is estimated to be 55%. The left ventricular end diastolic pressure is 15 mmHg. PCI Technique Lesion Anticoagulation was achieved with Heparin. Percutaneous coronary intervention was performed on the Mid to Distal right posterior descending artery. The lesion stenosis prior to intervention was 80% with ALEX 2 flow. A JR 3.5 Guide Catheter was used to engage the ostium. BALLOON DILATION A Balloon catheter 2.5/20 was inserted and inflated up to 6atm for 60seconds. Multiple POBA Final angiography reveals 0 % stenosis with ALEX 3 flow. PCI Technique Lesion 2 Percutaneous Coronary Intervention was performed on the Ostial R PDAright posterior descending artery. The lesion stenosis prior to intervention was 90% with ALEX 2 flow. A JR 3.5, 6 Fr Guide Catheter was used to engage the ostium. BALLOON DILATION A Balloon catheter 2.5/9 was inserted and inflated up to glenn for seconds. STENT DEPLOYMENT A drug-eluting stent 3.5/9 was inserted and inflated up to 14atm for 20seconds. Final angiography reveals 0 % stenosis with ALEX 3 flow. PCI Technique Lesion 3 Percutaneous Coronary Intervention was performed on the distal right coronary artery. The lesion stenosis prior to intervention was 90% with ALEX 2 flow. A JR 3.5, 6Fr Guide Catheter was used to engage the ostium. BALLOON DILATION A Balloon catheter 2.5/9 was inserted and inflated up to 6atm for 15seconds. STENT DEPLOYMENT A drug-eluting stent 3.5/9 was inserted and inflated up to 14atm for 20seconds. Final angiography reveals 0 % stenosis with ALEX 3 flow. PCI Technique Lesion 4 Percutaneous Coronary Intervention was performed on the mid right coronary artery. The lesion stenosis prior to intervention was 90% with ALEX 2 flow. A JR 3.5.6Fr Guide Catheter was used to engage the ostium. BALLOON DILATION A Balloon catheter 2.5/9 was inserted and inflated up to glenn for seconds. STENT DEPLOYMENT A drug-eluting stent 4.0/22 was inserted and inflated up to 18atm for 30seconds. Final angiography reveals 0 % stenosis with ALEX 3 flow. Conclusion Two Vessel CAD, RCA and LAD RCA has Multiple stenoses involving R PDA with thrombotic lesion. Preserved Lv Fx. EF-55%, EDP-15 mmof Hg. Successful OTCA with Nickolas Of Mid and distal RCA and Ostial R PDA with NICKOLAS and POBA of Mid R PDA. Recommendations Smoking Cessation Daily ASA with Plavix for at least one year Aggressive Medical TherapyCardiac Risk Reduction Program Complete cessation of Coccaine abuse. Staged PTCA of Proximal to Mid LAD on 01/03/2017 at 7:30- am Compliance with Meds explained to pt and his through central sterile tech. CC; Dr. Mcleod.
[2016-12-03] MEDS: Eptifibatide 0.75 mg/ml 75 MG/100 ML BOTTLE IV SCH (17:23)
[2016-12-04] MEDS: Eptifibatide 0.75 mg/ml 75 MG/100 ML BOTTLE IV SCH (01:04)
[2016-12-04] MEDS: Insulin Reg-LOW-Coverage SC SCH ×2 (08:05→12:24)
--- NOTE | 2016-12-04 08:08 | PN ---
DATE: 12/03/2016 SUBJECTIVE: The patient is a 46-year-old male, seen after catheterization by Dr. Mcgrath. Looks comfortable. No nausea, vomiting, or diarrhea. No hematuria or hematochezia. No fever, no chills, no overnight change. No headache, no dizziness. PHYSICAL EXAMINATION: VITAL SIGNS: Temperature 98.4, pulse is 69, blood pressure 115/84, respiratory rate 18. HEAD: Normocephalic, atraumatic. EYES: PERRLA. Extraocular muscles INTACT , sclera clear. Nose patent. Mucous membranes moist. NECK: Supple. No carotid bruit, JVD or thyromegaly. CHEST: Bilaterally symmetrical. HEART: S1, S2 positive. LUNGS: Clear to auscultation. ABDOMEN: Soft. Bowel sounds present. No organomegaly. EXTREMITIES: No edema, no cyanosis. NEUROLOGIC: The patient is awake, alert, moving all 4 extremities. No focal deficit. MEDICATIONS: Aspirin, metformin, insulin, Integrilin, Pepcid, Plavix, simvastatin. LABORATORY DATA: White blood cells 6.9, hemoglobin 14.7, hematocrit 41.3, and platelets 154. Sodium noted , potassium 3.7, BUN noted , creatinine 0.7. Glucose 189. ASSESSMENT AND PLAN: The patient is a 46-year-old male with history of leukocytosis, better; anemia, hyperglycemia, cocaine positive. Went for catheterization by Dr. Mcgrath. Discussion done with Dr. Mcgrath. The patient had 2- vessel coronary artery disease - right coronary artery and left anterior descending. Right coronary artery has multiple stenosis involving the right posterior descending artery with a thrombotic lesion, preserved left ventricular function, ejection fraction 55, EDP 15 mmHg, successful OTCA and distal right coronary artery and ostial RPDA with the ULISES and RPDA. Dr. Mcgrath suggested smoking cessation, daily aspirin and Plavix for at least 1 year, Aggressive medical management for cardiac risk reduction program, complete cessation of the cocaine abuse, LAD on 01/03/2017 at 7:30 a.m. Compliance with medication. Explained to the patient and his through solar design engineer by Dr. Mcgrath. Length of time discussion done with Dr. Mcgrath. Has uncontrolled diabetes mellitus. Gastrointestinal and deep venous thrombosis prophylaxis. Length of time discussion done with the patient. Will follow up. Asia Mcleod MD cc: [id number] TT: 12/03/2016 22:45:16 Confirmation # [id number] Dictation # [id number] jn 12/04/2016 05:17:00 AMBREEN
--- NOTE | 2016-12-04 11:36 | PN ---
DATE: 12/04/2016 REASON FOR CONSULTATION AND FOLLOWUP: Coronary artery disease, non-STEMI, cocaine, history of substa nce abuse, status post PTCA of right coronary artery with 3 stents and plain balloon angioplasty of d istal PDA. 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 After having c ocaine, developed chest pain. Brought here, found to have ST elevation later on which subsequently s ubsided completely with resolution of the chest pain as well as ST segment. The patient underw ent yesterday cardiac catheterization and had 3 drug-coated stents in the mid and distal right alfaro ry artery and in RPDA and plain balloon angioplasty of RPDA was done. The patient is scheduled for P TCA of LAD on 01/03/2017 at 7:30. Denies any chest pain, shortness of breath, any palpitation. PHYSICAL EXAMINATION: VITAL SIGNS: Temperature afebrile, heart rate , blood pressure 112/61. HEENT: PERRLA. Extraocular muscles intact. NECK: Supple. No carotid bruits. No thyromegaly. CHEST: Clear to auscultation. HEART: S1, S2 regular. ABDOMEN: Soft. EXTREMITIES: Clubbing, cyanosis negative. BLOOD WORKUP: WBC 6.9, hemoglobin 14. , hematocrit 41.3, platelet count 154. Chemistry shows so dium 130, potassium 3.7, chloride 99, carbon dioxide 28, anion gap of 13, BUN 12, creatinine 0.7. IMPRESSION: Non-ST segment myocardial infarction, coronary artery disease, is status post percutaneo us transluminal coronary angioplasty of right coronary artery, 3 drug-eluting stents and plain balloo n angioplasty of right posterior descending artery, is scheduled for percutaneous transluminal alfaro ry angioplasty of left anterior descending on 01/03/2017 at 7:30. Emphasis made on compliance with th e medication. Explained to patient this morning with the son, who speaks good Wolof. Interim, con tinue lisinopril, continue aspirin, continue Plavix, continue simvastatin. Possible discharge. Antonio Mcgrath MD cc: [id number] TT: 12/04/2016 11:36:07 Confirmation # [id number] Dictation # [id number]
[2016-12-04 12:02] VITALS: BP 134/96; PULSE 70; RESP 21; TEMP 97.8
--- NOTE | 2016-12-04 20:55 | CARD ---
APPROVED REPORT EKG Measurement Heart [id number] VT 146P40 [id number] <Conclusion> Normal sinus rhythm Inferior infarct, age undetermined Abnormal ECG
--- NOTE | 2016-12-11 17:45 | DS ---
CHIEF COMPLAINT: Chest pain, shortness of breath. HISTORY OF PRESENT ILLNESS: The patient is a 46-year-old male, with past medical history of diabetes mellitus on metformin, hypertension, came to the evaluation of intermittent chest pain over the last 4 days, with recurrent episodes of chest pain. Started 30 minutes before EMS arrived at the patient's home. EMS reported that the patient had received aspirin in the field and nitroglycerin was held as the patient's blood pressure was up systolic in the 100s. EMS stated that the patient had rhythm strips that were highly suggestive of an acute ND infarction inferiorly. Upon arrival, the patient stated that the pain was no longer. The patient described the pain as a sensation of tightness and is about 10/10 in severity. The patient reports that he saw his primary care physician earlier the day of admission. Denies any shortness of breath. We admitted the patient to Dr. Mcgrath due to cardiac catheterization. The patient was seen by when he was covering Dr. Mcgrath. The patient felt better. Discharged home with the clearance of the flame hardener , Dr. Mcgrath. PAST MEDICAL HISTORY: Diabetes mellitus, hypertension, hypercholesterolemia. FAMILY HISTORY: Father and mother noncontributory. HABITS: No smoking, no drugs, no ethanol. ALLERGIES: The patient is not allergic to any medications. HOME MEDICATIONS: Zocor, metformin. REVIEW OF SYSTEMS: The patient was seen and examined on the bedside. Looks comfortable. No nausea, vomiting, diarrhea. No hematochezia. No headache, no dizziness, no chest pain. PHYSICAL EXAMINATION: VITAL SIGNS: Temperature 98.6, blood pressure 112/61, pulse 80, respiratory rate 18. HEENT: Normocephalic, atraumatic. Eyes: PERRLA. [place] and intact. Conjunctivae clear. Nose patent. Mucous membranes are moist. NECK: Supple. No carotid bruit or thyromegaly. CHEST: Bilaterally symmetrical. HEART: S1, S2 positive. LUNGS: Clear to auscultation. ABDOMEN: Soft. Bowel sounds present. No organomegaly. EXTREMITIES: No edema, no cyanosis. NEUROLOGIC: The patient is awake, alert. Moving all 4 extremities. No focal deficit. LABORATORY DATA: White blood cells 6.9, hemoglobin 14.7, hematocrit 41.3, platelets 154. Sodium 136, potassium 3.7, BUN 12, creatinine 0.7, glucose 145. ASSESSMENT AND PLAN: The patient is a 46-year-old male who came with a leukocytosis, improved, hyperglycemia, improved. Cocaine was positive in his system. Seen by Dr. Mcgrath, flame hardener. Went for cardiac catheterization. Has a [id number] myocardial infarction, coronary artery disease. Had 3 drug -eluting stents and plain balloon angioplasty of the right posterior descending artery. He is scheduled for percutaneous transluminal coronary angioplasty of the left anterior descending on 01/03/2017. Emphasis made on compliance of the medication. Education done. Explained to the patient and his son , who speaks good Maltese. Dr. Mcgrath explained to the son about father's noncompliance and how he should be compliant. Meanwhile, continue lisinopril, aspirin, Plavix, simvastatin. The patient was discharged home. Follow up with primary care physician. Prescription was given. Wire Dropper. Asia Mcleod MD cc: [id number] TT: 12/11/2016 17:44:47 dn MTDD
== END 2016-12-04 15:31 | disposition home or self-care (01) | DRG 247 ==
LOC: ED 19:51 → ERH 22:02 → 2RNO 12-01 00:07 → 2RSO 12-03 11:47
PROVIDERS: ADMIT Internal Medicine; ATTEND Internal Medicine
PROC: 027036Z Dilation of Coronary Artery, One Artery with Three Drug-eluting Intraluminal Devices, Percutaneous Approach (ICD-10-PCS; principal; 2016-12-03)
PROC: 02703ZZ Dilation of Coronary Artery, One Artery, Percutaneous Approach (ICD-10-PCS; 2016-12-03)
PROC: 4A023N7 Measurement of Cardiac Sampling and Pressure, Left Heart, Percutaneous Approach (ICD-10-PCS; 2016-12-03)
PROC: B2111ZZ Fluoroscopy of Multiple Coronary Arteries using Low Osmolar Contrast (ICD-10-PCS; 2016-12-03)
PROC: B2151ZZ Fluoroscopy of Left Heart using Low Osmolar Contrast (ICD-10-PCS; 2016-12-03)
PROC: 3E033PZ Introduction of Platelet Inhibitor into Peripheral Vein, Percutaneous Approach (ICD-10-PCS; 2016-12-03)
DX: I21.4 Non-ST elevation (NSTEMI) myocardial infarction (principal); I25.10 Atherosclerotic heart disease of native coronary artery without angina pectoris; D68.69 Other thrombophilia; E11.65 Type 2 diabetes mellitus with hyperglycemia; I10 Essential (primary) hypertension; E78.00 Pure hypercholesterolemia, unspecified; E78.5 Hyperlipidemia, unspecified; F14.10 Cocaine abuse, uncomplicated; D64.9 Anemia, unspecified; D72.829 Elevated white blood cell count, unspecified; Z79.84 Long term (current) use of oral hypoglycemic drugs; Z87.891 Personal history of nicotine dependence; Z82.49 Family history of ischemic heart disease and other diseases of the circulatory system